=== PATIENT | female | born 1975 | race Two or more races ===

== ENCOUNTER 2022-01-21 18:16 | Emergency (ER) | payer BC ==
[~2022-01-21] VITALS: Ht 154.9 cm; Wt 54.5 kg
[2022-01-21] MEDS ORDERED: IBUPROFEN 200 MG TABLET. PO ONE (20:30)
[2022-01-21] MEDS ORDERED: HYDROcodone/APAP 5/325MG 1 TAB TABLET PO ONE (20:30)
[2022-01-21 21:20] LABS: BASO # 0.1 x10^3/uL (0.0-0.2); BASO % 1 % (0-3); EOS # 0.1 x10^3/uL (0.0-0.7); EOS % 1 % (0-3); HEMATOCRIT 29.8 % (36.0-47.0); HEMOGLOBIN 9.4 g/dL (12.0-15.5); LYMPH # 2.5 x10^3/uL (1.0-4.8); LYMPH % 30 % (24-48); MEAN CORPUSCULAR HEMOGLOBIN 24 pg (25-35); MEAN CORPUSCULAR HGB CONC 32 g/dL (31-37); MEAN CORPUSCULAR VOLUME 76 fL (79-100); MONO # 0.8 x10^3/uL (0.0-1.1); MONO % 10 % (0-9); NEUT # 4.8 x10^3/uL (1.8-7.7); NEUT % 58 % (31-73); PLATELET COUNT 282 x10^3/uL (140-400); RED BLOOD COUNT 3.92 x10^6/uL (3.50-5.40); RED CELL DISTRIBUTION WIDTH 16.8 % (11.5-14.5); WHITE BLOOD COUNT 8.4 x10^3/uL (4.0-11.0)
--- NOTE | 2022-01-21 21:22 | RAD ---
EXAM: Left lower extremity venous Doppler. HISTORY: Left lower extremity pain/swelling. COMPARISON: None. FINDINGS: Grayscale and Doppler analysis of the left lower extremity deep venous system was performed with graded compression and augmentation. The common femoral, greater saphenous, superficial femoral , popliteal and calf veins were assessed. There is no evidence of deep venous thrombosis. A superficial varicosity branching from the greater s aphenous vein at the level of the knee contains thrombus that extends to the mid calf. There is also superficial venous thrombus within the lesser saphenous vein in the mid calf. IMPRESSION: 1. Superficial venous thrombus within the lesser saphenous vein in the calf. 2. Superficial venous thrombus within a superficial varicosity arising from the greater saphenous vei n at the level of the knee. 3. No evidence of deep venous thrombosis. Electronically signed by: Danyel Rocha MD (01/21/2022 9:19 PM) [id number]
[2022-01-21 21:36] LABS: CALCIUM 8.5 mg/dL (8.5-10.1); CREATININE 0.4 mg/dL (0.6-1.0); GFR 173.4; POTASSIUM 3.9 mmol/L (3.5-5.1)
[2022-01-21 21:50] LABS: ALBUMIN 3.7 g/dL (3.4-5.0); ALBUMIN/GLOBULIN RATIO 0.9 (1.0-1.7); C-REACTIVE PROTEIN 2.4 mg/L (0-3.3); TOTAL BILIRUBIN 0.1 mg/dL (0.2-1.0); TOTAL PROTEIN 7.6 g/dL (6.4-8.2)
[2022-01-21 22:30] VITALS: BP 126/82
[2022-01-21] MEDS ORDERED: [UNRECOGNIZED DRUG - CODE] TP (22:30)
[2022-01-21] MEDS ORDERED: IBUP-1007 PO (22:30)
[2022-01-21] MEDS ORDERED: LIDO35.4 TP (22:30)
--- NOTE | 2022-01-21 22:30 | PHYS DOC ---
Past Medical History Past Medical History: No Pertinent History Past Surgical History: No Surgical History Smoking Status: Never Smoker Alcohol Use: None Drug Use: None General Adult EDM: Chief Complaint: LOWER EXT PAIN HPI: HPI: Patient is a 46-year-old female presents to the emergency department complaining of left lower leg pain near her calf for the past week. 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 Patient denies a history of DVT. Denies history of smoking cigarettes, illicit drug use or alcohol use. Patient reports she used to use the Depo-Provera control but has not used control in 14 years. Patient denies shortness of breath, chest discomfort, chest palpitations, denies dizziness, headaches, visual disturbances, syncopal or near syncopal episodes. Patient reports a current pain a 5-6 out of 10, has not tried [id number] or prescription pain medications, has not tried nonpharmacological pain relief methods. Patient denies other physical concerns or physical complaints. Review of Systems: Review of Systems: 14 body systems of review of systems have been reviewed. See HPI for pertinent positives and negative responses, otherwise all other systems are negative, nonpertinent or noncontributory. Constitutional: Negative except as outlined in HPI above. Skin: Negative except as outlined in HPI above. Eyes: Negative except as outlined in HPI above. HENT: Negative except as outlined in HPI above. Respiratory: Negative except as outlined in HPI above. Cardiovascular: Negative except as outlined in HPI above. GI: Negative except as outlined in HPI above. : Negative except as outlined in HPI above. Musculoskeletal: Negative except as outlined in HPI above. Integument: Negative except as outlined in HPI above. Neurologic: Negative except as outlined in HPI above. Endocrine: Negative except as outlined in HPI above. Lymphatic: Negative except as outlined in HPI above. Psychiatric: Negative except as outlined in HPI above. Heart Score: C/O Chest Pain: No Risk Factors: Risk Factors: DM, Current or recent (<one month) smoker, HTN, HLP, family his tory of CAD, obesity. Risk Scores: Score 0 - 3: 2.5% MACE over next 6 weeks - Discharge Home Score 4 - 6: 20.3% MACE over next 6 weeks - Admit for Clinical Observation Score 7 - 10: 72.7% MACE over next 6 weeks - Early Invasive Strategies Current Medications: Current Medications Medications (Trade) Dose Ordered Sig/Ingrid Start Time Stop Time Status Last Admin Dose Admin Acetaminophen/ Hydrocodone Bitart (Lortab 5/325) 1 tab 1X ONCE 01/21/22 20:30 01/21/22 20:32 DC 01/21/22 21:03 1 TAB Ibuprofen (Motrin) 600 mg 1X ONCE 01/21/22 20:30 01/21/22 20:32 DC 01/21/22 21:02 600 MG Allergies: Allergies: Allergies Coded Allergies Type Severity Reaction Last Updated Verified No Known Drug Allergies 07/09/15 No Physical Exam: PE: Constitutional: Well developed, well nourished, no acute distress, non-toxic appearance. 46-year-old female in no apparent distress. HENT: Normocephalic, atraumatic. Eyes: Conjunctiva normal, no discharge. Neck: Normal range of motion, no stridor. Cardiovascular: No cyanosis appreciated, distal cap refill less than 2 seconds. Lungs & Thorax: Patient is in no respiratory distress, no audible adventitious lung sounds appreciated. Abdomen: Nontender, no abnormalities noted. Skin: Warm, dry, no erythema, no rash. Back: No tenderness, no deformities. Extremities: No tenderness, no cyanosis, no clubbing, ROM intact, no edema. Except for left lower extremity, pain to palpation over lower half of calf muscle, negative popliteal pain to palpation, negative knee pain, full passive range of motion of knee joint and ankle joint without eliciting pain. Negative Homans signs, calf muscle given surface is slightly erythematous with poorly demarcated borders with indurated superficial veins. The skin is intact, no drainage appreciated. Psychologic: Affect normal, judgement normal, mood normal. Current Patient Data: Labs: Laboratory Tests Test 01/21/22 21:10 White Blood Count 8.4 x10^3/uL (4.0-11.0) Red Blood Count 3.92 x10^6/uL (3.50-5.40) Hemoglobin 9.4 g/dL (12.0-15.5) L Hematocrit 29.8 % (36.0-47.0) L Mean Corpuscular Volume 76 fL (79-100) L Mean Corpuscular Hemoglobin 24 pg (25-35) L Mean Corpuscular Hemoglobin Concent 32 g/dL (31-37) Red Cell Distribution Width 16.8 % (11.5-14.5) H Platelet Count 282 x10^3/uL (140-400) Neutrophils (%) (Auto) 58 % (31-73) Lymphocytes (%) (Auto) 30 % (24-48) Monocytes (%) (Auto) 10 % (0-9) H Eosinophils (%) (Auto) 1 % (0-3) Basophils (%) (Auto) 1 % (0-3) Neutrophils # (Auto) 4.8 x10^3/uL (1.8-7.7) Lymphocytes # (Auto) 2.5 x10^3/uL (1.0-4.8) Monocytes # (Auto) 0.8 x10^3/uL (0.0-1.1) Eosinophils # (Auto) 0.1 x10^3/uL (0.0-0.7) Basophils # (Auto) 0.1 x10^3/uL (0.0-0.2) Sodium Level 138 mmol/L (136-145) Potassium Level 3.9 mmol/L (3.5-5.1) Chloride Level 104 mmol/L (98-107) Carbon Dioxide Level 25 mmol/L (21-32) Anion Gap 9 (6-14) Blood Urea Nitrogen 8 mg/dL (7-20) Creatinine 0.4 mg/dL (0.6-1.0) L Estimated GFR (Cockcroft-Gault) 173.4 BUN/Creatinine Ratio 20 (6-20) Glucose Level 93 mg/dL (70-99) Calcium Level 8.5 mg/dL (8.5-10.1) Total Bilirubin Pending Aspartate Amino Transferase (AST) Pending Alanine Aminotransferase (ALT) Pending Alkaline Phosphatase Pending C-Reactive Protein, Quantitative Pending Total Protein Pending Albumin Pending Albumin/Globulin Ratio Pending Laboratory Tests 01/21/22 21:10 Laboratory Tests 01/21/22 21:10 Vital Signs: Vital Signs Date Time Temp Pulse Resp B/P (MAP) Pulse Ox O2 Delivery O2 Flow Rate FiO2 01/21/22 21:03 Room Air 01/21/22 20:00 98.6 75 19 125/70 (88) 100 98.6 EKG: EKG: [] Radiology/Procedures: Radiology/Procedures: STATUS: REG ER ORD. PHYSICIAN: GABRIEL PEPE APRN REASON: Left lower extremity pain, swelling, DVT study. PROCEDURE: VENOUS LOWER EXTREMITY LEFT EXAM: Left lower extremity venous Doppler. HISTORY: Left lower extremity pain/swelling. COMPARISON: None. FINDINGS: Grayscale and Doppler analysis of the left lower extremity deep venous system was performed with graded compression and augmentation. The common femoral, greater saphenous, superficial femoral, popliteal and calf veins were assessed. There is no evidence of deep venous thrombosis. A superficial varicosity branching from the greater saphenous vein at the level of the knee contains t hrombus that extends to the mid calf. There is also superficial venous thrombus within the lesser saphenous vein in the mid calf. IMPRESSION: 1. Superficial venous thrombus within the lesser saphenous vein in the calf. 2. Superficial venous thrombus within a superficial varicosity arising from the greater saphenous vein at the level of the knee. 3. No evidence of deep venous thrombosis. Electronically signed by: Danyel Rocha MD (01/21/2022 9:19 PM) [id number] Course & Med Decision Making: Course & Med Decision Making Pertinent Labs and Imaging studies reviewed. (See chart for details) 46-year-old female, vital signs reviewed, resents emergency department concerning left lower leg pain for the past week. Physical examination concerning for DVT versus superficial thrombosis versus thrombophlebitis, will order sonogram lower extremity venous study to rule out DVT, CBC, CMP, lactic acid, sed rate, CRP, blood cultures x2. Will give ibuprofen and hydrocodone for pain medication. Venous sonogram study of lower extremity left nonconcerning for DVT, does shows superficial vein thrombosis. The patient's labs are unremarkable, sed rate is slightly elevated at 28, CRP is negative, discussed findings with patient, home care to include compression garments, topical pain medications, NSAID therapy, follow-up sonogram in 1 week, strict follow-up with primary care. Return to ER precautions and concerns were discussed. Patient reported pain medication given in the ED brought her pain to a 0 out of 10. Discussed with patient will also cover prophylactically with Keflex. Patient gave verbal understanding and is amenable to ED discharge planning. Discussed with the patient all findings and diagnostic testing as well as the need to follow-up with their primary care provider for further evaluation and treatment or return to the ED if any new or worsening symptoms. Strict return precautions were also discussed at length, the patient voiced understanding and agreement with the discharge planning. The patient was nontoxic in appearance, in no apparent distress, and hemodynamically stable at the time of disposition. Dragon Disclaimer: Dragon Disclaimer: This electronic medical record was generated, in whole or in part, using a voice recognition dictation system. Departure Departure Impression: Primary Impression: Acute superficial venous thrombosis of left lower extremity Additional Impression: Atopic dermatitis in adult Disposition: 01 HOME / SELF CARE / HOMELESS Condition: GOOD Referrals: NO PCP (PCP) Additional Instructions: Lo vieron hoy en el departamento de emergencias por dolor en la parte inferior d e la pierna izquierda. Hoy se realiz kolby ecografa en el servicio de urgencias, raj estudio no mostr ninguna evidencia de cogulos de dania en las venas profundas de las piernas. Sin embargo, mostr cogulos de dania en las venas superficiales de tari piernas. [place] se trata con compresin, nader vendas Luis o medias SILVANO, puede comprarlas en la farmacia nader comentamos. [place]ap[place] antiinflamatoria no esteroide o LIO, nader Naprosyn o ibuprofeno, le recetar un rgimen corto de ibuprofeno para el dolor y la incomodidad. Tambin puede considerar usar parches de lidocana tpica, se los recetar para el dolor y la incomodidad. [place] comentamos, te estoy iniciando un rgimen de antibiticos para cubrir cualquier tipo de proceso infeccioso. Adjunto kolby lista de clnicas y mdicos del rodolfo para que usted establezca atencin primaria, ya que es muy importante que tenga kolby reevaluacin de la ecografa en aproximadamente 1 semana para asegurarse de que estas terapias estn funcionando. Usted haba pedido kolby receta de un esteroide para tari problemas de eccema, le he recetado kolby crema para el eccema para que la use. Romel un seguimiento con diez mdico de atencin primaria para la gestin continua de la atencin mdica. Regrese al departamento de emergencias si los sntomas empeoran u otras inquietudes. Luis por visitar nuestro Departamento de Emergencias. Fue un placer atenderlo hoy en el departamento de emergencias y le agradecemos que nos haya confiado diez atencin. Si surge algn problema adicional, no dude en volver a visitarnos. Romel un seguimiento con diez proveedor de atencin primaria para que puedan planificar atencin adicional si es necesario y conocer el problema que tuvo. Si los sntomas empeoran, regrese al Departamento de Emergencias. Cualquier sntoma preocupante que comience, nader dolor en el pecho, falta de aire, debilidad o entumecimiento en un lado del cuerpo, fiebre nik o cualquier otro sntoma preocupante, regresa a la lawrence de emergencias. You were seen today in the emergency department for pain to your left lower leg. A sonogram was performed in the ED today, this study did not show any evidence of blood clots in the deep veins of your legs. However it did show blood clots in the superficial veins of your legs. This is treated with compression such as Luis wraps or SILVANO hose, you may purchase these at the pharmacy as we discussed. Nonsteroidal anti-inflammatory or NSAID therapy such as Naprosyn or ibuprofen, I will prescribe a short regimen of ibuprofen to take for pain and discomfort. You may also consider using topical lidocaine patches, I will prescribe these for pain and discomfort. As we discussed, I am starting you on a antibiotic regimen to cover any type of infectious process. I have attached a list of area clinics and physicians for you to establish primary care as it is very important for you to have a reevaluation of the sonogram in approximately 1 week to ensure these therapies are working. You had asked for a prescription of a steroid for your eczema problems, I have prescribed a eczema cream for you to use. Please follow-up with your primary care physician for ongoing health care management. Return to the emergency department for worsening symptoms or other concerns. Thank you for visiting our Emergency Department. It was a pleasure taking care of you today in the emergency department and we appreciate you trusting us with your care. If any additional problems come up don't hesitate to return to visit us. Please follow up with your primary care provider so they can plan additional care if needed and know about the problem that you had. If symptoms worsen come back to the Emergency Department. Any concerning symptoms that start such as chest pain, shortness of air, weakness or numbness on one side of the body, running high fevers or any other concerning symptoms return to the ER. Scripts Fluocinolone Acetonide (SYNALAR) 120 Gm Cream..g. 1 DULCE TP BID for eczema for 30 Days, #120 GM 0 Refills Prov: GABRIEL PEPE APRN 01/21/22 Lidocaine (LIDOCAINE) 35.44 Gm Oint...g. 35.44 GM TP BID for topical leg pain, #1 MISC 0 Refills Prov: GABRIEL PEPE APRN 01/21/22 Ibuprofen (IBUPROFEN) 600 Mg Tablet 600 MG PO PRN Q6HRS PRN for INFLAMMATION, #30 TAB 0 Refills Prov: GABRIEL PEPE APRN 01/21/22 GABRIEL PEPE APRN Jan 21, 2022 22:30
== END 2022-01-21 22:35 | disposition home or self-care (01) ==
LOC: ER 18:16
DX: I82.812 Embolism and thrombosis of superficial veins of left lower extremity (principal); L20.9 Atopic dermatitis, unspecified
CPT/HCPCS: 36415; 80053; 83605; 85025; 85651; 86140; 87040; 93971; 99284